=== PATIENT | male | born 1975 | race Caucasian/White ===

== ENCOUNTER 2023-08-11 18:02 | Inpatient (IN) | payer OTHER ==
[2023-08-11 18:42] VITALS: BMI 34.0
[2023-08-11] MEDS ORDERED: guaiFENesin 600 MG TABLET.ER (FP) PO PRN (19:17)
[2023-08-11] MEDS ORDERED: BENZONATATE 200 MG CAPSULE PO PRN (19:17)
[2023-08-11] MEDS ORDERED: NALOXONE HCL 0.4 MG/ML VIAL IM PRN (19:17)
[2023-08-11] MEDS ORDERED: POLYETHYLENE GLYCOL (HEALTHYLAX) 3350 17 GM PACKET PO PRN (19:17)
[2023-08-11] MEDS ORDERED: BENZOCAINE/MENTHOL (CHLORASEPTIC ) LOZENGE MM PRN (19:17)
[2023-08-11] MEDS ORDERED: NALOXONE HCL (KLOXXADO) 8 MG SPRAY NS PRN (19:17)
[2023-08-11] MEDS ORDERED: cloNIDine HCL 0.1 MG TABLET ONE (19:45)
[2023-08-11] MEDS ORDERED: methaDONE HCL 10 MG TABLET (FOR DETOX USE ONLY) ONE (19:45)
[2023-08-11] MEDS: methaDONE HCL 10 MG TABLET (FOR DETOX USE ONLY) PO ONE (19:56)
[2023-08-11] MEDS: cloNIDine HCL 0.1 MG TABLET PO PRN (19:59)
[2023-08-11] MEDS: MAGNESIUM HYDROX 2400MG/30ML ORAL SUSPENSION 30 ML CUP PO PRN (20:11)
[2023-08-11] MEDS: MELATONIN 5 MG TABLETS PO SCH (22:42)
[2023-08-11] MEDS: METHOCARBAMOL 500 MG TABLET PO PRN (22:42)
[2023-08-11] MEDS: THIAMINE HCL 100 MG TABLET (FP) PO SCH (22:42)
[2023-08-11] MEDS: MAG HYDROX/AL HYDROX/SIMETH 30 ML UNIT-DOSE CUP PO PRN (23:16)
[2023-08-11] MEDS: diazePAM 5 MG TABLET PO ONE (23:28)
[2023-08-12] MEDS: DICYCLOMINE HCL 10 MG CAPSULE PO PRN (04:57)
[2023-08-12] MEDS: cloNIDine HCL 0.1 MG TABLET PO ONE (08:28)
[2023-08-12] MEDS: diazePAM 5 MG TABLET PO PRN (08:43)
[2023-08-12] MEDS: IBUPROFEN 600 MG TABLET (FP) PO PRN (08:44)
[2023-08-12] MEDS: levETIRAcetam 500 MG TABLET (FP) PO SCH (09:05)
[2023-08-12] MEDS: PRENATAL VITAMINS W/ FOLIC ACID TABLET (FP) PO SCH (10:16)
[2023-08-12 11:33] LABS: HEMATOCRIT 41.3 % (35.4-49); HEMOGLOBIN 13.5 GM/dL (11.7-16.9); MCH 30.9 pg (25.7-33.7); MCHC 32.8 g/dl (32.0-35.9); MEAN CELL VOLUME 94.3 fl (80-96); MEAN PLT VOLUME 8.6 fl (7.5-11.1); PLATELET COUNT 234 10^3/uL (134-434); RBC 4.38 M/mm3 (4.00-5.60); RDW 14.2 % (11.9-15.9); WHITE BLOOD COUNT 9.5 K/mm3 (4.0-10.0)
[2023-08-12 11:35] LABS: CHLORIDE 104 mmol/L (98-107); POTASSIUM 3.3 mmol/L (3.5-5.1); SODIUM 140 mmol/L (136-145)
[2023-08-12 11:37] LABS: ALBUMIN 3.3 g/dl (3.4-5.0); ANION GAP 5 mmol/L (4-13); BLOOD UREA NITROGEN 7.4 mg/dL (7-18); CALCIUM 8.4 mg/dL (8.5-10.1); CO2 32 mmol/L (21-32); GLUCOSE,RANDOM 109 mg/dL (74-106)
[2023-08-12 11:40] LABS: SGOT/AST 27 U/L (15-37); SGPT/ALT 25 U/L (13-61)
[2023-08-12 11:42] LABS: BILIRUBIN,TOTAL 0.4 mg/dL (0.2-1); TOT PROT 6.5 g/dl (6.4-8.2)
[2023-08-12 11:43] LABS: ALK PHOS 75 U/L (45-117)
[2023-08-12] MEDS: BISMUTH SUBSALICYLATE 524 MG/30 ML PO PRN (11:50)
[2023-08-12] MEDS: POTASSIUM CHLORIDE ORAL LIQUID 20 MEQ/15 ML PO ONE (13:42)
[2023-08-12] MEDS: GABAPENTIN 300 MG CAPSULE PO SCH (15:39)
[2023-08-12] MEDS: amLODIPine BESYLATE 5 MG TABLET (FP) PO ONE (19:11)
[2023-08-13] MEDS: ONDANSETRON *ODT* 4 MG TABLET SL ONE (03:30)
[2023-08-13] MEDS: methaDONE HCL 10 MG TABLET (FOR DETOX USE ONLY) PO ONE (10:21)
[2023-08-14] MEDS: ACETAMINOPHEN 325 MG TABLET (FP) PO PRN (07:20)
[2023-08-14] MEDS: ONDANSETRON *ODT* 4 MG TABLET SL ONE (10:21)
[2023-08-14] MEDS: cloNIDine HCL 0.1 MG TABLET PO PRN (13:18)
[2023-08-14] MEDS: IBUPROFEN 400 MG TABLET (FP) PO PRN (14:44)
[2023-08-14] MEDS: diazePAM 5 MG TABLET PO ONE (20:43)
[2023-08-15] MEDS: methaDONE HCL 10 MG TABLET (FOR DETOX USE ONLY) PO ONE (10:24)
[2023-08-15] MEDS: diazePAM 5 MG TABLET PO PRN (14:11)
[2023-08-16 09:13] VITALS: RESP 16; TEMP 98.4
[2023-08-16 11:18] VITALS: BP 145/92; PULSE 70
== END 2023-08-16 13:33 | disposition home or self-care (01) | DRG 773 ==
LOC: YASAS 18:02 → Y3N 19:15
PROVIDERS: ADMIT Allergy & Immunology; ATTEND Surgery
PROC: HZ2ZZZZ Detoxification Services for Substance Abuse Treatment (ICD-10-PCS; principal; 2023-08-11)
DX: F11.23 Opioid dependence with withdrawal (principal); F13.20 Sedative, hypnotic or anxiolytic dependence, uncomplicated; E87.6 Hypokalemia; G40.909 Epilepsy, unspecified, not intractable, without status epilepticus; G62.9 Polyneuropathy, unspecified; I10 Essential (primary) hypertension; M54.50 Low back pain, unspecified; G89.29 Other chronic pain; Z99.89 Dependence on other enabling machines and devices
CPT/HCPCS: 36415; 80053; 80307; 84132; 85027; 86780; 87635; 93005; 93010; Q0162